=== PATIENT | male | born 1995 | race Caucasian/White ===

== ENCOUNTER 2017-05-12 15:00 | Emergency (ER) | payer BC, OTHER ==
[~2017-05-12] VITALS: Ht 188 cm; Wt 86.2 kg
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
[2017-05-12] MEDS ORDERED: methylPREDNISolone 125 MG (Solu-MEDROL) VIAL IM ONE (15:45)
[2017-05-12 16:02] VITALS: BP 126/76
== END 2017-05-12 16:00 | disposition home or self-care (01) ==
LOC: ER 15:03
DX: L25.5 Unspecified contact dermatitis due to plants, except food (principal)
CPT/HCPCS: 99282

== ENCOUNTER 2017-11-26 15:16 | Emergency (ER) | payer BC ==
[~2017-11-26] VITALS: Ht 188 cm; Wt 86.2 kg
[2017-11-26] MEDS ORDERED: AZIT250T12 PO (16:27)
[2017-11-26] MEDS ORDERED: CODE118S2 PO (16:27)
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
[2017-11-26 16:56] VITALS: BP 150/81
[2017-11-26] MEDS ORDERED: PRD20T PO (16:56)
== END 2017-11-26 16:56 | disposition home or self-care (01) ==
LOC: EDUNIT# 15:16 → ER 15:17
DX: J40 Bronchitis, not specified as acute or chronic (principal)
CPT/HCPCS: 71046; 99283

== ENCOUNTER → 2018-09-17 | Outpatient (CLI) | payer BC ==
[~2018-09-17] MED LIST: AZIT250T12 PO; CODE118S4 PO; PRD20T PO
--- NOTE | 2018-09-17 13:37 | Diagnostic Imaging Report ---
INDICATION: Lump just to the right of the base of the penis. TECHNIQUE: Sonographic interrogation of the scrotum as well as the area of the patient's lump was performed. FINDINGS: The right testicle measures 5.2 x 2.6 x 3.1 cm and the left testicle measures 5.1 x 2.8 x 3.1 cm. Both testes demonstrate homogeneous echotexture. No discrete testicular mass is seen. There is blood flow to both testes. No hydrocele or varicocele is identified. Epididymides are unremarkable. Sonographic interrogation of the area of lump just to the right of the base of the penis was performed. There is a hypoechoic mass just below the skin surface measuring approximately 2.8 x 2.1 cm. No internal vascularity is seen. IMPRESSION: 1. No evidence of testicular mass or vascular compromise. 2. Hypoechoic mass at the area of palpable abnormality without internal vascularity. The features are nonspecific. This could potentially represent a sebaceous cyst. Continued clinical follow-up to confirm stability is recommended. Dictated by: Dictated on workstation # [id number]
== END ==
LOC: RAD 10:45
PROVIDERS: ATTEND Surgery
DX: N50.89 Other specified disorders of the male genital organs (principal)
CPT/HCPCS: 76870

== ENCOUNTER → 2018-10-06 | Outpatient (CLI) | payer BC ==
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
== END ==
LOC: RAD 16:01
PROVIDERS: ATTEND Nurse Practitioner Family
DX: S00.83XA Contusion of other part of head, initial encounter (principal); S09.93XA Unspecified injury of face, initial encounter; H11.31 Conjunctival hemorrhage, right eye; W19.XXXA Unspecified fall, initial encounter
CPT/HCPCS: 70450; 70486